=== PATIENT | female | born 1985 | race Caucasian/White ===

== ENCOUNTER → 2021-10-14 00:01 | Outpatient (BNVA) | payer SELFPAY | PROVIDERS: PCP Nurse Practitioner Family; Visit Provider Nurse Practitioner Family | DX: R00.0 Tachycardia, unspecified (principal); R00.2 Palpitations; R03.0 Elevated blood-pressure reading, without diagnosis of hypertension; Z13.6 Encounter for screening for cardiovascular disorders | CPT/HCPCS: 80053; 80061; 81003; 84439; 84443; 85025 ==

== ENCOUNTER → 2021-10-22 11:35 | Outpatient (BNVA) | payer SELFPAY | PROVIDERS: PCP Nurse Practitioner Family; Visit Provider Family Medicine | DX: Z13.6 Encounter for screening for cardiovascular disorders (principal) | CPT/HCPCS: 81003 ==

== ENCOUNTER → 2022-01-09 09:28 | Outpatient (BNVA) | payer BC, SELFPAY | PROVIDERS: PCP Nurse Practitioner Family; Visit Provider Nurse Practitioner Family | DX: L02.214 Cutaneous abscess of groin (principal); L02.91 Cutaneous abscess, unspecified; T63.301A Toxic effect of unspecified spider venom, accidental (unintentional), initial encounter; M25.842 Other specified joint disorders, left hand | CPT/HCPCS: 73130 ==

== ENCOUNTER 2022-01-15 07:17 | Outpatient (CLI) | payer BC, SELFPAY ==
[2022-01-15 07:27] VITALS: BMI 52.2
--- NOTE | 2022-01-15 08:57 | ECG_ITS ---
[facility] Test Date: 2022-01-15 Pat Name: Robyn Weiner Department: Room: Gender: Female Assistant Operations Manager: Toshazoran Recion : 1985 Requested By: Peri Ballrad Order Number: [id number] Navarrete MD: Micheal Rosales M.D. Interpretive Statements NAME OF STUDY: TREADMILL STRESS TEST INDICATION: [Dyspnea, ] EXERCISE DATA: The patient was exercised by Jignesh protocol. Baseline heart rate was 93 beats per minute. Baseline blood pressure was 131/81 millimeters of mercury. Target heart rate was 154 beats per minute. Maximum heart rate achieved was 177, which was 114% of the target heart rate. Maximum blood pressure was 176/106 millimeters of mercury. Total exercise time was 6 minutes 10 seconds. Maximum METs achieved was 10.2, maximum VO2 was 35.7. The reason for ending the test was completion of the protocol. The patient complained of shortness of breath during the stress test, which then resolved at the end of the test. ELECTROCARDIOGRAM: BASELINE: Showed sinus rhythm, right axis deviation, incomplete RBBB, no significant ST-T changes at the baseline noted. [] EXERCISE: At the peak exercise level, [] No significant ST-T changes suggestive of ischemia noted. [] RECOVERY: During the recovery period, heart rate dropped appropriately. No significant ST-T changes in the recovery suggestive of ischemia noted. [] CONCLUSION: 1. Exercise capacity excellent. 2. Heart rate response was appropriate. 3. Blood pressure response was appropriate. 4. Symptoms not suggestive of ischemia. 5. Exercise stress test was negative for ischemia Electronically Signed On 01-22-2022 17:10:33 [employer] CRM DEVELOPER by Micheal Rosales M.D. [id number]
[2022-01-15 09:23] VITALS: BP 127/92; PULSE 114
--- NOTE | 2022-01-15 12:45 | USCV_ITS ---
Robyn Weiner Age: 36 Gender: F : 1985 Exam Date: 01/15/2022 07:42 Ordering Phys: Peri Ballard MD ([email or web address]) Technologist: Exam Location: [facility] – [place] Indication: abnormal ekg BP: 130 / 86 HR: 90 Rhythm: Sinus Technical Quality: Adequate MEASUREMENTS (Male / Female) Normal Values 2D ECHO LV Diastolic Diameter PLAX 5.2 cm 4.2 - 5.9 / 3.9 - 5.3 cm LV Systolic Diameter PLAX 3.8 cm IVS Diastolic Thickness 1.0 cm 0.6 - 1.0 / 0.6 - 0.9 cm IVS Systolic Thickness 1.3 cm LVPW Diastolic Thickness 1.4 cm 0.6 - 1.0 / 0.6 - 0.9 cm LVPW Systolic Thickness 1.7 cm LVOT Diameter 2.1 cm LV Ejection Fraction 2D Teich 52.8 % LV Ejection Fraction MOD 2C 61.0 % LV Ejection Fraction 2C AL 61.8 % LA Diameter 3.3 cm Aorta at Sinotubular Diameter 2.7 cm M-MODE Aortic Annulus Diameter 2.4 cm LA Ao Ratio MM 1.5 MV E Point Septal Separation 0.5 cm DOPPLER AV Peak Velocity 132.0 cm/s LVOT Peak Velocity 106.0 cm/s AV Area Cont Eq vti 2.4 cm squared AV Area Cont Eq pk 2.8 cm squared MV Area PHT 3.7 cm squared Mitral E to A Ratio 1.2 MV E' Velocity 39.5 cm/s Mitral E to MV E' Ratio 6.3 Mitral E to LV E' Lateral Ratio 5.6 Mitral E to LV E' Septal Ratio 7.1 TR Peak Velocity 119.0 cm/s TR Peak Gradient 5.7 mmHg TV Peak E Velocity 79.0 cm/s Right Atrial Pressure 3.0 mmHg Pulmonary Artery Systolic Pressu 8.7 mmHg PV Peak Velocity 131.0 cm/s RV Acceleration Time 0.1 s FINDINGS Left Ventricle Normal left ventricular size. LV systolic function is normal with EF of 55-60%. and wall thickness, with no regional wall motion abnormalities. Normal left ventricular wall thickness. Normal diastolic filling pattern. Right Ventricle The right ventricle is normal in size and function. Right Atrium The right atrium is normal in size. Left Atrium The left atrium is normal in size. Mitral Valve Structurally normal mitral valve without significant stenosis or prolapse. There is trace mitral regurgitation. Aortic Valve Structurally normal aortic valve without significant sclerosis or stenosis. There is no aortic regurgitation. Tricuspid Valve Structurally normal tricuspid valve without significant stenosis or regurgitation. Insufficient TR jet to calculate RVSP Pulmonic Valve Structurally normal pulmonic valve without significant stenosis. There is no pulmonic regurgitation. Pericardium Normal pericardium without effusion. Aorta Normal ascending aorta dimension. CONCLUSIONS LV systolic function is normal with EF of 55-60% Diastolic function is normal Trace mitral regurgitation No comparison studies are available Micheal Rosales MD (Electronically Signed) Final Date: 21 January 2022 10:51 S
== END 2022-01-15 07:18 | disposition home or self-care (01) ==
LOC: RAD 07:19 → CDL 07:22
PROVIDERS: PCP Nurse Practitioner Family; Visit Provider Internal Medicine Cardiovascular Disease
DX: R06.00 Dyspnea, unspecified (principal); R94.31 Abnormal electrocardiogram [ECG] [EKG]; I34.0 Nonrheumatic mitral (valve) insufficiency
CPT/HCPCS: 93017; 93306

== ENCOUNTER → 2022-02-05 11:48 | Outpatient (BNVA) | payer BC, SELFPAY | PROVIDERS: PCP Nurse Practitioner Family; Visit Provider Nurse Practitioner Family | DX: N39.0 Urinary tract infection, site not specified (principal); Z79.899 Other long term (current) drug therapy; R35.0 Frequency of micturition | CPT/HCPCS: 80053; 81003; 83036; 87086 ==

== ENCOUNTER → 2022-02-24 17:00 | Outpatient (BNVA) | payer SELFPAY | PROVIDERS: PCP Nurse Practitioner Family; Visit Provider Nurse Practitioner Family | DX: N76.4 Abscess of vulva (principal); E55.9 Vitamin D deficiency, unspecified | CPT/HCPCS: 36415; 82306 ==

== ENCOUNTER → 2022-02-25 10:00 | Outpatient (BNVA) | payer SELFPAY | PROVIDERS: PCP Nurse Practitioner Family; Visit Provider Nurse Practitioner Family | DX: N76.4 Abscess of vulva (principal) | CPT/HCPCS: 87070; 87075; 87205 ==

== ENCOUNTER 2022-03-01 11:03 | Outpatient (CLI) | payer BC, MEDICAID, SELFPAY ==
--- NOTE | 2022-03-01 11:29 | XRR_ITS ---
PROCEDURE INFORMATION: Exam: XR Thoracic Spine Exam date and time: 03/01/2022 11:29 AM Age: 36 years old Clinical indication: Pain in thoracic spine; Additional info: M54.6 - pain in thoracic spine, provide copy of disc TECHNIQUE: Imaging protocol: XR of the thoracic spine. Views: 3 views. COMPARISON: No relevant prior studies available. FINDINGS: Bones/joints: Multilevel intervertebral disc space narrowing is seen with bone spurs consistent with osteoarthritis. No acute fracture. Normal alignment. Soft tissues: Unremarkable. XR/XR thoracic spine 3V* [id number] IMPRESSION: No acute bone abnormality.
--- NOTE | 2022-03-01 11:29 | XRR_ITS ---
PROCEDURE INFORMATION: Exam: XR Abdomen Exam date and time: 03/01/2022 11:29 AM Age: 36 years old Clinical indication: Abdominal pain; Additional info: R10.9 - unspecified abdominal pain TECHNIQUE: Imaging protocol: XR of the abdomen. Views: Frontal supine view of the abdomen. 1 View. COMPARISON: No relevant prior studies available. FINDINGS: Gastrointestinal tract: Normal. No bowel dilation. Bones/joints: Unremarkable. XR/XR KUB [id number] IMPRESSION: No acute findings.
== END 2022-03-01 11:04 | disposition home or self-care (01) ==
PROVIDERS: PCP Nurse Practitioner Family; Visit Provider Nurse Practitioner Family
DX: R10.9 Unspecified abdominal pain (principal); M54.6 Pain in thoracic spine; G89.29 Other chronic pain
CPT/HCPCS: 72072; 74018

== ENCOUNTER 2022-03-03 15:58 | Emergency (ER) | payer BC, MEDICAID, SELFPAY ==
[2022-03-03 16:20] VITALS: BP 155/91; PULSE 84; RESP 18; TEMP 36.8; O2SAT 99; BMI 50.7
--- NOTE | 2022-03-03 16:53 | W.ED.ABDPA2 ---
Documented by User: THOMAS Khan 03/04/22 07:06 HPI - Abdominal Pain General: Chief Complaint: Abdominal Pain Stated Complaint: Lower RT Back area pain Time Seen by Provider: 03/03/22 16:46 History of Present Illness: Patient is a 36-year-old female comes to the ED with right flank pain. Symptoms started approximately a month ago. Says the pain in her right flank has continued to progress. Over the weekend she was really sick and nauseous and had episodes of emesis due to the pain. Pain worsens with movement. She currently rates her pain a 5 out of 10. She does endorse having some increased urine frequency. Denies any fevers, dysuria or hematuria. She saw her primary care doctor approximately a week ago and they did some blood work and an x-ray and did not see any kidney stone on x-ray. Primary care doctor was thinking she would send her for a ultrasound or CT of kidneys. Since patient's symptoms are worse over the weekend she decided to come in to be evaluated. She just finished taking doxycycline due to vaginal cyst that got infected. Associated Symptoms: Reports nausea and vomiting; Denies chills, constipation, diarrhea, dysuria, fever(s), hematochezia and hematuria Related Data: Date of Last Menstrual Period: 01/15/22 Review of Systems Const: Denies: fever(s), chills or fatigue Eyes: Denies: change in vision or eye discomfort ENMT: Denies: throat pain, odynophagia, nasal discharge or nasal congestion Card: Denies: chest pain, palpitations, edema, swelling of feet/ankles, dyspnea on exertion or orthopnea Resp: Denies: dyspnea, productive cough or non-productive cough GI: Reports: nausea and vomiting; Denies: abdominal pain, diarrhea, constipation or hematochezia : Reports: flank pain (right flank) and urinary frequency (Increased urine frequency); Denies: dysuria or hematuria Musc: Denies: neck pain, back pain or extremity swelling Skin/Breast: Denies: rash or new lesions Neuro: Denies: headache(s), numbness in extremities or weakness in extremities [facility] ED PFSH: Medical History Abscess of left genital labia Abscess of left groin COVID-19 virus infection Cyst of joint of left hand Elevated blood pressure reading without diagnosis of hypertension Fatigue Flank pain H/O eczema Hypertension screen Low back pain Medication management Medication management Palpitations Shoulder fracture, left Spider bite Thoracic back pain Urinary frequency Family History Grandmother Bleeding disorder Cancer Dementia Grandfather Bleeding disorder CAD (coronary artery disease), Onset Age: 55 MA Diabetes Family/Other Bleeding disorder Chronic kidney disease (CKD) Dementia Diabetes Lung disease Denies family history of Clotting disorder Suicide Anesthesia complication Stroke Social History Smoking and tobacco status: never smoked Alcohol intake: never Female Reproductive History: Date of last menstrual period: 01/15/22 Physical Exam Const: COMMON NORMALS: no acute distress, patient oriented x3, healthy appearing and alert GENERAL APPEARANCE: cooperative and comfortable NUTRITIONAL APPEARANCE: obese HENMT: COMMON NORMALS: normocephalic HEAD & SCALP: normocephalic MOUTH: Normal oral and palatal mucosa present THROAT: posterior oropharynx normal and uvula midline Neck/C-Spine: COMMON NORMALS: supple GENERAL: Yes normal visual inspection Resp: COMMON NORMALS: normal respiratory effort, No retractions, No use of accessory muscles and clear to auscultation bilaterally AUSCULTATION: clear to auscultation bilaterally Cardio: COMMON NORMALS: regular rate, regular rhythm, S1 normal heart sound present, S2 normal heart sound present, No gallops present (Cardio), No clicks present (Cardio), No murmurs present (Cardio) and Peripheral pulses 2+ throughout RATE: regular rate RHYTHM: regular rhythm HEART SOUNDS: S1 normal heart sound present and S2 normal heart sound present PERIPHERAL PULSES: Peripheral pulses 2+ throughout GI: COMMON NORMALS: Normal to inspection, nondistended, normoactive bowel sounds present, Soft to palpation, non-tender and no masses PALPATION: Yes Soft to palpation : BLADDER/KIDNEY EXAM: Yes CVA tenderness on the right Back/Pelvis: GENERAL BACK: Yes CVA tenderness Extremity: COMMON NORMALS: normal to inspection and no pedal edema Neuro: COMMON NORMALS: patient oriented x3 SENSORIUM/ORIENTATION: Yes alert GAIT: Yes Normal gait present Skin: GENERAL SKIN EXAM: dry skin Course Vital Signs: Vital signs: Vital Signs Temperature 98.9 F 03/03/22 16:59 Pulse Rate 88 03/03/22 19:30 Respiratory Rate 20 H 03/03/22 19:30 Blood Pressure 129/68 03/03/22 19:30 Pulse Oximetry 98 03/03/22 19:30 MDM - Abdominal Pain Lab Data I reviewed the patient's lab results. : 03/03/22 17:00 03/03/22 17:00 Labs/Radiology: Radiology Impressions Abdomen/Pelvis CT 03/03/22 16:59 IMPRESSION: 1. Mild hepatosplenomegaly. 2. Trace dependent pleural fluid. 3. Additional findings, as above. Laboratory Results WBC 8.5 10^3/uL (4.0-10.0) 03/03/22 17:00 RBC 4.46 10^6/uL (4.1-5.3) 03/03/22 17:00 Hgb 13.1 g/dL (11.5-15.3) 03/03/22 17:00 Hct 40.8 % (37.0-47.0) 03/03/22 17:00 MCV 91.5 fl (81-99) 03/03/22 17:00 MCH 29.4 pg (28.0-34.0) 03/03/22 17:00 MCHC 32.1 g/dL (30.0-36.0) 03/03/22 17:00 RDW 13.1 % (12.1-15.1) 03/03/22 17:00 Plt Count 316 10^3/cmm (130-400) 03/03/22 17:00 MPV 9.8 fL (7.4-10.4) 03/03/22 17:00 Neut % (Auto) 62.8 % 03/03/22 17:00 Lymph % (Auto) 26.1 % 03/03/22 17:00 [place] % (Auto) 6.0 % 03/03/22 17:00 Eos % (Auto) 4.4 % 03/03/22 17:00 Baso % (Auto) 0.5 % 03/03/22 17:00 Neut # (Auto) 5.33 10^3/uL (1.8-7.7) 03/03/22 17:00 Lymph # (Auto) 2.2 10^3/uL (0.8-4.8) 03/03/22 17:00 [place] # (Auto) 0.5 10^3/uL (0.2-0.9) 03/03/22 17:00 Eos # (Auto) 0.4 10^3/uL (0.0-0.8) 03/03/22 17:00 Baso # (Auto) 0.0 10^3/uL (0.0-0.1) 03/03/22 17:00 Nucleated RBC % (auto) 0 % 03/03/22 17:00 Nucleated RBCs # 0.0 /100WBC 03/03/22 17:00 Sodium 138 mmol/L (136-145) 03/03/22 17:00 Potassium 3.9 mmol/L (3.5-5.1) 03/03/22 17:00 Chloride 101 mmol/L (98-107) 03/03/22 17:00 Carbon Dioxide 26 mmol/L (22-29) 03/03/22 17:00 Anion Gap 14.9 (5-19) 03/03/22 17:00 BUN 10 mg/dL (6-20) 03/03/22 17:00 Creatinine 0.8 mg/dL (0.5-0.9) 03/03/22 17:00 GFR Calculation 80.3 mL/min (90-130) L 03/03/22 17:00 Glucose 81 mg/dL (65-115) 03/03/22 17:00 Calculated Osmolality 284 mOsm/kg (285-295) L 03/03/22 17:00 Calcium 10.0 mg/dL (8.5-10.5) 03/03/22 17:00 Total Bilirubin 0.2 mg/dL (0.15-1.2) 03/03/22 17:00 AST 17 U/L (0-32) 03/03/22 17:00 ALT 20 U/L (0-33) 03/03/22 17:00 Alkaline Phosphatase 95 IU/L (35-105) 03/03/22 17:00 Total Protein 7.4 g/dL (6.6-8.7) 03/03/22 17:00 Albumin 4.4 g/dL (3.5-5.2) 03/03/22 17:00 Globulin 3.0 g/dL (1.3-4.6) 03/03/22 17:00 Lipase 25 U/L (13-60) 03/03/22 17:00 HCG, Qual Negative (Negative) 03/03/22 17:00 Urine Color Yellow (Yellow) 03/03/22 17:00 Urine Appearance Cloudy (CLEAR) 03/03/22 17:00 Urine pH 5 (5-7) 03/03/22 17:00 Ur Specific [place] 1.015 (1.005-1.030) 03/03/22 17:00 Urine Protein Neg (Negative) 03/03/22 17:00 Urine Glucose (UA) Norm (Normal) 03/03/22 17:00 Urine Ketones Negative (Negative) 03/03/22 17:00 Urine Blood 3+ (Negative) H 03/03/22 17:00 Urine Nitrate Negative (Negative) 03/03/22 17:00 Urine Bilirubin Neg (Negative) 03/03/22 17:00 Urine Urobilinogen Norm mg/dL (Negative) 03/03/22 17:00 Ur Leukocyte Esterase Negative (Negative) 03/03/22 17:00 Urine RBC 0-4 /hpf (0-2) H 03/03/22 17:00 Urine WBC 0-4 /hpf (0-5) H 03/03/22 17:00 Ur Squamous Epith Cells 0-4 /hpf (0-5) H 03/03/22 17:00 Amorphous Sediment Not Reportable 03/03/22 17:00 Urine Bacteria 1+ /hpf (NONE) H 03/03/22 17:00 Urine Mucus 1+ /hpf 03/03/22 17:00 Discharge Plan Discharge Patient Disposition: Home Clinical Impression: Right flank pain Condition: Stable Prescriptions: No Action doxycycline monohydrate 100 mg capsule 100 mg PO BID 10 Days Qty: 20 0RF zinc 50 mg Tablet 50 mg PO DAILY 0RF Vitamin D3 125 mcg (5,000 unit) Tablet 125 mcg PO DAILY 0RF Discharge Orders: Discharge ED (Routine); Ordered 03/03/22 Ordered By: Boogie Massey Referrals: DINO Willoughby, TOÑA [Primary Care Provider] - Discharge Diet: Usual diet Discharge Activity: Increase activity as tolerated Patient Instructions: Back Pain (ED), Lower Back Exercises (ED) Activity Restrictions/Additional Instructions: Activity as tolerated. Gentle stretching and range of motion exercises. Use acetaminophen and ibuprofen for pain. Follow-up with primary care for further instruction. Return to ER for new concerns. Sign Out Sign Out Data: Patient Sign Out occurred on 03/03/22 at 17:15. Patient's care was discussed, and care was transferred from to Boogie Massey. Coding Level of Care Code ED Porcelain Enameler for Chg Fwd Exam Comprehensive Documented by User: TOÑA Hollins 03/03/22 19:28 HPI - Abdominal Pain General: Chief Complaint: Abdominal Pain Stated Complaint: Lower RT Back area pain Time Seen by Provider: 03/03/22 16:46 PFSH ED PFSH: Medical History Abscess of left genital labia Abscess of left groin COVID-19 virus infection Cyst of joint of left hand Elevated blood pressure reading without diagnosis of hypertension Fatigue Flank pain H/O eczema Hypertension screen Low back pain Medication management Medication management Palpitations Shoulder fracture, left Spider bite Thoracic back pain Urinary frequency Family History Grandmother Bleeding disorder Cancer Dementia Grandfather Bleeding disorder CAD (coronary artery disease), Onset Age: 55 MA Diabetes Family/Other Bleeding disorder Chronic kidney disease (CKD) Dementia Diabetes Lung disease Denies family history of Clotting disorder Suicide Anesthesia complication Stroke Social History Smoking and tobacco status: never smoked Alcohol intake: never Course Vital Signs: Vital signs: Vital Signs Temperature 98.9 F 03/03/22 16:59 Pulse Rate 88 03/03/22 19:30 Respiratory Rate 20 H 03/03/22 19:30 Blood Pressure 129/68 03/03/22 19:30 Pulse Oximetry 98 03/03/22 19:30 MDM - Abdominal Pain Medical Decision Making 36-year-old female comes in with right flank pain. Patient's been having pain for about 1 month. Patient reports worsening pain over the weekend. Patient has tried chiropractic services and has been being treated for urinary tract infection and abscess to the axilla and groin. Patient takes doxycycline and vitamin D3 and zinc routinely. Patient had COVID-19 about 1 year ago. Patient does have an occasional arrhythmia. On exam patient has tenderness on palpation of the right flank area. No CVA tenderness. No midline spinal tenderness. Abdomen soft nontender. Bowel sounds are present. Skin is warm and dry. Differential diagnosis includes but not limited to musculoskeletal pain, renal calculi, cholecystitis. Laboratory values were normal. Urinalysis was unremarkable. CT of the abdomen pelvis noted some atelectasis in bilateral lung panda with trace of pleural effusion. Abdominal pelvis was unremarkable. Believe the atelectasis and fluid on the lung is probably residual from patient's bout of COVID-19 with pneumonia. Patient appears well. I believe patient has tenderness and probably is musculoskeletal in nature pain. I reassured patient no signs of kidney stones or other abnormality was noted. I recommended patient follow-up with primary care for further instruction. Lab Data : 03/03/22 17:00 03/03/22 17:00 Labs/Radiology: Radiology Impressions Abdomen/Pelvis CT 03/03/22 16:59 IMPRESSION: 1. Mild hepatosplenomegaly. 2. Trace dependent pleural fluid. 3. Additional findings, as above. Laboratory Results WBC 8.5 10^3/uL (4.0-10.0) 03/03/22 17:00 RBC 4.46 10^6/uL (4.1-5.3) 03/03/22 17:00 Hgb 13.1 g/dL (11.5-15.3) 03/03/22 17:00 Hct 40.8 % (37.0-47.0) 03/03/22 17:00 MCV 91.5 fl (81-99) 03/03/22 17:00 MCH 29.4 pg (28.0-34.0) 03/03/22 17:00 MCHC 32.1 g/dL (30.0-36.0) 03/03/22 17:00 RDW 13.1 % (12.1-15.1) 03/03/22 17:00 Plt Count 316 10^3/cmm (130-400) 03/03/22 17:00 MPV 9.8 fL (7.4-10.4) 03/03/22 17:00 Neut % (Auto) 62.8 % 03/03/22 17:00 Lymph % (Auto) 26.1 % 03/03/22 17:00 [place] % (Auto) 6.0 % 03/03/22 17:00 Eos % (Auto) 4.4 % 03/03/22 17:00 Baso % (Auto) 0.5 % 03/03/22 17:00 Neut # (Auto) 5.33 10^3/uL (1.8-7.7) 03/03/22 17:00 Lymph # (Auto) 2.2 10^3/uL (0.8-4.8) 03/03/22 17:00 [place] # (Auto) 0.5 10^3/uL (0.2-0.9) 03/03/22 17:00 Eos # (Auto) 0.4 10^3/uL (0.0-0.8) 03/03/22 17:00 Baso # (Auto) 0.0 10^3/uL (0.0-0.1) 03/03/22 17:00 Nucleated RBC % (auto) 0 % 03/03/22 17:00 Nucleated RBCs # 0.0 /100WBC 03/03/22 17:00 Sodium 138 mmol/L (136-145) 03/03/22 17:00 Potassium 3.9 mmol/L (3.5-5.1) 03/03/22 17:00 Chloride 101 mmol/L (98-107) 03/03/22 17:00 Carbon Dioxide 26 mmol/L (22-29) 03/03/22 17:00 Anion Gap 14.9 (5-19) 03/03/22 17:00 BUN 10 mg/dL (6-20) 03/03/22 17:00 Creatinine 0.8 mg/dL (0.5-0.9) 03/03/22 17:00 GFR Calculation 80.3 mL/min (90-130) L 03/03/22 17:00 Glucose 81 mg/dL (65-115) 03/03/22 17:00 Calculated Osmolality 284 mOsm/kg (285-295) L 03/03/22 17:00 Calcium 10.0 mg/dL (8.5-10.5) 03/03/22 17:00 Total Bilirubin 0.2 mg/dL (0.15-1.2) 03/03/22 17:00 AST 17 U/L (0-32) 03/03/22 17:00 ALT 20 U/L (0-33) 03/03/22 17:00 Alkaline Phosphatase 95 IU/L (35-105) 03/03/22 17:00 Total Protein 7.4 g/dL (6.6-8.7) 03/03/22 17:00 Albumin 4.4 g/dL (3.5-5.2) 03/03/22 17:00 Globulin 3.0 g/dL (1.3-4.6) 03/03/22 17:00 Lipase 25 U/L (13-60) 03/03/22 17:00 HCG, Qual Negative (Negative) 03/03/22 17:00 Urine Color Yellow (Yellow) 03/03/22 17:00 Urine Appearance Cloudy (CLEAR) 03/03/22 17:00 Urine pH 5 (5-7) 03/03/22 17:00 Ur Specific [place] 1.015 (1.005-1.030) 03/03/22 17:00 Urine Protein Neg (Negative) 03/03/22 17:00 Urine Glucose (UA) Norm (Normal) 03/03/22 17:00 Urine Ketones Negative (Negative) 03/03/22 17:00 Urine Blood 3+ (Negative) H 03/03/22 17:00 Urine Nitrate Negative (Negative) 03/03/22 17:00 Urine Bilirubin Neg (Negative) 03/03/22 17:00 Urine Urobilinogen Norm mg/dL (Negative) 03/03/22 17:00 Ur Leukocyte Esterase Negative (Negative) 03/03/22 17:00 Urine RBC 0-4 /hpf (0-2) H 03/03/22 17:00 Urine WBC 0-4 /hpf (0-5) H 03/03/22 17:00 Ur Squamous Epith Cells 0-4 /hpf (0-5) H 03/03/22 17:00 Amorphous Sediment Not Reportable 03/03/22 17:00 Urine Bacteria 1+ /hpf (NONE) H 03/03/22 17:00 Urine Mucus 1+ /hpf 03/03/22 17:00 Discharge Plan Discharge Patient Disposition: Home Clinical Impression: Right flank pain Condition: Stable Prescriptions: No Action doxycycline monohydrate 100 mg capsule 100 mg PO BID 10 Days Qty: 20 0RF zinc 50 mg Tablet 50 mg PO DAILY 0RF Vitamin D3 125 mcg (5,000 unit) Tablet 125 mcg PO DAILY 0RF Discharge Orders: Discharge ED (Routine); Ordered 03/03/22 Ordered By: Boogie Massey Referrals: DINO Willoughby, EQUIPMENT MAN [Primary Care Provider] - Discharge Diet: Usual diet Discharge Activity: Increase activity as tolerated Patient Instructions: Back Pain (ED), Lower Back Exercises (ED) Activity Restrictions/Additional Instructions: Activity as tolerated. Gentle stretching and range of motion exercises. Use acetaminophen and ibuprofen for pain. Follow-up with primary care for further instruction. Return to ER for new concerns. Sign Out Sign Out Data: Patient Sign Out occurred on 03/03/22 at 17:15. Patient's care was discussed, and care was transferred from to Boogie Massey. Coding Level of Care Code ED Porcelain Enameler for Carla Fwd Exam Comprehensive
[2022-03-03 16:59] VITALS: BP 143/94; PULSE 94; RESP 16; TEMP 37.2; O2SAT 96
--- NOTE | 2022-03-03 16:59 | CTR_ITS ---
PROCEDURE INFORMATION: Exam: CT Abdomen And Pelvis Without Contrast Exam date and time: 03/03/2022 5:55 PM Age: 36 years old Clinical indication: Abdominal pain; Flank; Right; Additional info: Right flank pain TECHNIQUE: Imaging protocol: Computed tomography of the abdomen and pelvis without contrast. Axial, coronal and sagittal reformatted images were created and reviewed. Radiation optimization: All CT scans at this facility use at least one of these dose optimization techniques: automated exposure control; mA and/or kV adjustment per patient size (includes targeted exams where dose is matched to clinical indication); or iterative reconstruction. COMPARISON: CR (ABDOMEN, ) 03/01/2022 11:29 AM RADIATION DOSE METRICS: Total DLP (mGy-cm): 2049.57 FINDINGS: Lungs: Linear/discoid stranding and groundglass at the lung bases, likely due to atelectasis and/or scarring. Pleural spaces: Trace dependent pleural fluid. Diaphragm: Small hiatal hernia. Liver: Mild hepatomegaly. Gallbladder and bile ducts: No radiodense gallstones. No biliary ductal dilatation. Pancreas: Unremarkable. Spleen: Mild splenomegaly. Adrenal glands: Normal. No mass. Kidneys and ureters: No mass. No radiodense calculi. No hydronephrosis. Stomach and bowel: No bowel wall thickening. No obstruction. No pneumatosis. Appendix: Normal. Intraperitoneal space: No free fluid. No organized fluid collection. No free air. Vasculature: Unremarkable. No aneurysm. Lymph nodes: No pathologically enlarged lymph nodes. Urinary bladder: Unremarkable as visualized. Reproductive: Unremarkable. Bones/joints: No acute osseous abnormality. Mild degenerative changes. Soft tissues: Small, fat containing umbilical hernia. CT/CT kidney stone [id number] IMPRESSION: 1. Mild hepatosplenomegaly. 2. Trace dependent pleural fluid. 3. Additional findings, as above.
[2022-03-03 17:10] LABS: Basophils % 0.5 %; Eosinophils # 0.4 10^3/uL (0.0-0.8); Eosinophils % 4.4 %; Hematocrit 40.8 % (37.0-47.0); Hemoglobin 13.1 g/dL (11.5-15.3); Lymphocytes # 2.2 10^3/uL (0.8-4.8); Lymphocytes % 26.1 %; Mean Corpuscular HGB Conc 32.1 g/dL (30.0-36.0); Mean Corpuscular Hemoglobin 29.4 pg (28.0-34.0); Mean Corpuscular Volume 91.5 fl (81-99); Mean Platelet Volume 9.8 fL (7.4-10.4); Monocytes # 0.5 10^3/uL (0.2-0.9); Neutrophils # 5.33 10^3/uL (1.8-7.7); Neutrophils % 62.8 %; Nucleated Red Blood Cells % 0 %; Platelet Count 316 10^3/cmm (130-400); Red Blood Count 4.46 10^6/uL (4.1-5.3); Red Cell Distribution Width 13.1 % (12.1-15.1); White Blood Count 8.5 10^3/uL (4.0-10.0)
[2022-03-03 17:29] LABS: HCG, Serum Qual Negative (Negative)
[2022-03-03 17:34] LABS: Alanine Aminotransferase 20 U/L (0-33); Albumin Level 4.4 g/dL (3.5-5.2); Alkaline Phosphatase 95 IU/L (35-105); Anion Gap 14.9 (5-19); Aspartate Amino Transferase 17 U/L (0-32); Blood Urea Nitrogen 10 mg/dL (6-20); Carbon Dioxide 26 mmol/L (22-29); Chloride 101 mmol/L (98-107); Glomerular Filtration Rate 80.3 mL/min (90-130); Glucose 81 mg/dL (65-115); Lipase 25 U/L (13-60); Osmolality Calculated 284 mOsm/kg (285-295); Potassium 3.9 mmol/L (3.5-5.1); Sodium 138 mmol/L (136-145); Total Bilirubin 0.2 mg/dL (0.15-1.2); Total Protein 7.4 g/dL (6.6-8.7)
[2022-03-03 17:44] LABS: Add Urine Microscopic? YES; Bilirubin Urine Neg (Negative); Blood Urine 3+ (Negative); Glucose Urine UA Norm (Normal); Ketones Urine Negative (Negative); Leukocyte Esterase Urine Negative (Negative); Nitrate Urine Negative (Negative); Protein Urine Neg (Negative); Specific Gravity, Urine 1.015 (1.005-1.030); Urine Appearance Cloudy (CLEAR); Urine Color Yellow (Yellow); Urobilinogen Urine Norm (Negative); pH Urine 5 (5-7)
[2022-03-03 17:45] LABS: Bacteria Urine 1+ /hpf; Mucus Urine 1+ /hpf; RBC Urine 0-4 /hpf (0-2); Squamous Epithelial Cell Urine 0-4 /hpf (0-5); WBC Urine 0-4 /hpf (0-5)
[2022-03-03 18:49] VITALS: BP 114/73; PULSE 88; RESP 18; O2SAT 96
[2022-03-03 19:30] VITALS: BP 129/68; PULSE 88; RESP 20; O2SAT 98
== END 2022-03-03 19:32 | disposition home or self-care (01) ==
PROVIDERS: Physician Assistant; Emergency Provider Nurse Practitioner Family; PCP Nurse Practitioner Family
DX: M54.9 Dorsalgia, unspecified (principal)
CPT/HCPCS: 74176; 80053; 81001; 83690; 84703; 85025; 99282

== ENCOUNTER 2022-11-14 13:08 | Outpatient (CLI) | payer BC, MEDICAID, SELFPAY ==
--- NOTE | 2022-11-14 14:00 | USCV_ITS ---
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 In addition, the posterior tibial and peroneal trunk were evaluated. On the right side, the common femoral, superficial femoral, profunda femoral, popliteal, posterior tibial, greater saphenous veins and the peroneal trunk were identified and interrogated in the standard fashion. These veins were found to be easily compressible with spontaneous blood flow. No evidence of insufficiency or thrombus noted. FINDINGS: normal us CONCLUSIONS No evidence of right lower extremity DVT. Alistair Cullen MD (Electronically Signed) Final Date: 14 November 2022 17:25 S
== END 2022-11-14 13:09 | disposition home or self-care (01) ==
LOC: RAD 13:09
PROVIDERS: PCP Nurse Practitioner; Visit Provider Nurse Practitioner
DX: M79.604 Pain in right leg (principal)
CPT/HCPCS: 93971

== ENCOUNTER → 2023-10-02 09:36 | Outpatient (BNVA) | payer BC, MEDICAID, SELFPAY | PROVIDERS: PCP Nurse Practitioner; Visit Provider Nurse Practitioner Family | DX: E55.9 Vitamin D deficiency, unspecified (principal); Z13.6 Encounter for screening for cardiovascular disorders; M25.50 Pain in unspecified joint; R35.0 Frequency of micturition; Z79.899 Other long term (current) drug therapy; J34.2 Deviated nasal septum; R53.83 Other fatigue; R03.0 Elevated blood-pressure reading, without diagnosis of hypertension | CPT/HCPCS: 80053; 80061; 81003; 82306; 83036; 84443; 85025; 86038; 86200; 86431; 87070; 87806 ==

== ENCOUNTER → 2023-11-02 13:54 | Outpatient (BNVA) | payer BC, MEDICAID, SELFPAY | PROVIDERS: PCP Nurse Practitioner; Visit Provider Nurse Practitioner Family | DX: M25.50 Pain in unspecified joint (principal); R35.0 Frequency of micturition; J02.9 Acute pharyngitis, unspecified; R31.9 Hematuria, unspecified; E55.9 Vitamin D deficiency, unspecified; Z79.899 Other long term (current) drug therapy | CPT/HCPCS: 81003; 82728; 83550; 83735; 85025; 85651; 86140; 87086 ==

== ENCOUNTER → 2023-11-03 11:58 | Outpatient (BNVA) | payer BC, MEDICAID, SELFPAY | PROVIDERS: PCP Nurse Practitioner; Visit Provider Nurse Practitioner Family | DX: M25.50 Pain in unspecified joint (principal); R35.0 Frequency of micturition; J02.9 Acute pharyngitis, unspecified; R31.9 Hematuria, unspecified; E55.9 Vitamin D deficiency, unspecified | CPT/HCPCS: 87880 ==

== ENCOUNTER 2024-03-02 12:08 | Outpatient (CLI) | payer BC, MEDICAID, SELFPAY ==
--- NOTE | 2024-03-02 12:17 | XR_ITS ---
WS: [id number] Examination: XR cervical spine fl/ex [id number] Reason for Exam: M50.30 - Other cervical disc degeneration, unspecified ce... Date: March 02, 2024 Comparison: None. Findings: The ALEJANDRINA is intact. There is no prevertebral swelling. There is no wedging or compression. There is no neutral subluxation. Alignment is stable across flexi on and extension. Impression: There is no compression or subluxation.
== END 2024-03-02 12:09 | disposition home or self-care (01) ==
LOC: RAD 12:10
PROVIDERS: PCP Nurse Practitioner Family; Visit Provider Nurse Practitioner Family
DX: M50.30 Other cervical disc degeneration, unspecified cervical region (principal)
CPT/HCPCS: 72040

== ENCOUNTER 2024-08-16 06:00 | Outpatient (CLI) | payer BC, MEDICAID, SELFPAY | END 2024-08-16 06:01 | disposition home or self-care (01) | LOC: MOBLMAM 09-02 11:32 | PROVIDERS: PCP Nurse Practitioner Family; Visit Provider Nurse Practitioner Family | DX: Z13.6 Encounter for screening for cardiovascular disorders (principal); E55.9 Vitamin D deficiency, unspecified; R53.83 Other fatigue; D64.9 Anemia, unspecified; Z79.899 Other long term (current) drug therapy; Z12.4 Encounter for screening for malignant neoplasm of cervix | CPT/HCPCS: 80053; 82306; 82728; 83550; 85025; 85651; 86140; 87070; 87205; 87624 ==

== ENCOUNTER 2024-08-17 12:43 | Outpatient (CLI) | payer BC, MEDICAID, SELFPAY ==
--- NOTE | 2024-08-17 12:51 | XRR_ITS ---
PROCEDURE INFORMATION: Exam: XR Lumbosacral Spine Exam date and time: 08/17/2024 12:59 PM Age: 39 years old Clinical indication: Low back pain; Patient HX: Pain in lower back radiating down the back of the legs. ; Additional info: M54.16 - radiculopathy, lumbar region TECHNIQUE: Imaging protocol: Radiologic exam of the lumbosacral spine. Views: 6 or more views. Including flexion and extension views. COMPARISON: CT kidney stone [id number] 03/03/2022 5:55 PM FINDINGS: Bones/joints: Normal. No acute fracture. Normal alignment. Soft tissues: Unremarkable. XR/XR lumbar spine 6V w f/e [id number] IMPRESSION: No acute findings.
== END 2024-08-17 12:44 | disposition home or self-care (01) ==
LOC: RAD 12:47
PROVIDERS: PCP Nurse Practitioner Family; Visit Provider Nurse Practitioner Family
DX: M54.16 Radiculopathy, lumbar region (principal)
CPT/HCPCS: 72114

== ENCOUNTER 2024-08-31 17:11 | Outpatient (CLI) | payer BC, MEDICAID, SELFPAY ==
--- NOTE | 2024-08-31 17:25 | XR_ITS ---
WS: [id number] Exam: XR ankle LT min 3V* [id number] Date/Time of Exam: 08/31/2024 5:25 PM Reason For Exam: S96.912A - Strain of unspecified muscle and tendon at ank... Findings: Multiple views of the ankle reveal no fracture or displacements of bone. No soft tissue swelling is present. There are no periosteal reactions noted. The talus and calcaneus are in adequate position. The joint space is smooth and equidistant. XR/XR ankle LT min 3V* [id number] IMPRESSION: Negative LEFT ankle.
== END 2024-08-31 17:12 | disposition home or self-care (01) ==
LOC: RAD 17:15
PROVIDERS: PCP Nurse Practitioner Family; Visit Provider Nurse Practitioner Family
DX: S96.912A Strain of unspecified muscle and tendon at ankle and foot level, left foot, initial encounter (principal); X58.XXXA Exposure to other specified factors, initial encounter
CPT/HCPCS: 73610

== ENCOUNTER 2024-09-20 10:48 | Outpatient (CLI) | payer BC, MEDICAID, SELFPAY ==
--- NOTE | 2024-09-20 10:40 | MM_ITS ---
WS: [id number] BILATERAL 3D TOMOSYNTHESIS DIGITAL SCREENING MAMMOGRAPHY WITH CAD CLINICAL INFORMATION: Z12.31 - Encounter for screening mammogram for malignant ... HISTORY: Screening mammogram. No current complaints. COMPARISON: 2013 TECHNIQUE: Bilateral CC and MLO views. FINDINGS: Scattered fibroglandular densities bilaterally. No suspicious focal mass, asymmetry, calcifications, or architectural distortion. No evidence of malignancy. A few incidental punctate calcifications. MM/MM [facility] tomosynthesis [id number] IMPRESSION: DENSITY: There are scattered areas of fibroglandular density. BI-RADS: 2 - Benign. FOLLOW UP: 1 Year Follow-up Recommend return to annual screening mammography.
== END 2024-09-20 10:49 | disposition home or self-care (01) ==
LOC: MOBLMAM 10:51
PROVIDERS: PCP Nurse Practitioner Family; Visit Provider Nurse Practitioner Family
DX: Z12.31 Encounter for screening mammogram for malignant neoplasm of breast (principal); R92.323 Mammographic fibroglandular density, bilateral breasts; R92.1 Mammographic calcification found on diagnostic imaging of breast
CPT/HCPCS: 77063; 77067

== ENCOUNTER 2025-02-05 17:55 | Emergency (ER) | payer BC, MEDICAID, SELFPAY ==
[2025-02-05 17:59] VITALS: BP 156/82; PULSE 94; RESP 17; TEMP 36.7; O2SAT 98; BMI 50.1
--- NOTE | 2025-02-05 18:07 | CTR_ITS ---
PROCEDURE INFORMATION: Exam: CT Head Without Contrast Exam date and time: 02/05/2025 5:18 PM Age: 39 years old Clinical indication: Pain; Weakness, extremity; Headache; C/O HOLLOWAY with bilateral upper extremity numbness. ; Additional info: Headache bilateral arm numbness TECHNIQUE: Imaging protocol: Computed tomography of the head without contrast. Radiation optimization: All CT scans at this facility use at least one of these dose optimization techniques: automated exposure control; mA and/or kV adjustment per patient size (includes targeted exams where dose is matched to clinical indication); or iterative reconstruction. COMPARISON: CR XR cervical spine fl/ex [id number] 03/02/2024 12:28 PM RADIATION DOSE METRICS: Total DLP (mGy-cm): 1102.99 FINDINGS: Brain: Parenchymal structures of the brain demonstrate normal anatomy and attenuation. The patient is asymmetrically positioned within the gantry. Beam hardening artifact somewhat obscures resolution through the lower sections at the skull base and posterior fossa. The midline is intact. No hemorrhage. Unremarkable white matter. No mass effect. Cerebral ventricles: Ventricles demonstrate normal size shape and configuration and are in proportion to the degree of widening of the sulci, sylvian fissures and basilar cisterns. Paranasal sinuses: Visualized sinuses are unremarkable. No fluid levels. Mastoid air cells: Visualized mastoid air cells are well aerated. Orbital cavities: Mild bilateral exophthalmos is suspected with slight prominence of the medial rectus muscles. Bones: Unremarkable. No acute fracture. Soft tissues: Unremarkable. CT/CT head wo con* [id number] IMPRESSION: 1. No acute intracranial head CT findings identified. 2. Bilateral exophthalmos question history of thyroid ophthalmopathy.
--- NOTE | 2025-02-05 18:07 | CTR_ITS ---
PROCEDURE INFORMATION: Exam: CT Cervical Spine Without Contrast Exam date and time: 02/05/2025 5:18 PM Age: 39 years old Clinical indication: C/O HOLLOWAY with bilateral upper extremity numbness. ; Additional info: Bilateral arm numbness TECHNIQUE: Imaging protocol: Computed tomography of the cervical spine without contrast. Radiation optimization: All CT scans at this facility use at least one of these dose optimization techniques: automated exposure control; mA and/or kV adjustment per patient size (includes targeted exams where dose is matched to clinical indication); or iterative reconstruction. COMPARISON: CR XR cervical spine fl/ex [id number] 03/02/2024 12:28 PM RADIATION DOSE METRICS: Total DLP (mGy-cm): 914.6 FINDINGS: Bones/joints: Markedly prominent soft tissues result in significant beam hardening which does obscure resolution particularly through the lower sections at the cervicothoracic region. Detailed axial sections and reconstructed sagittal and coronal image sets demonstrate no distinct linear areas of decreased density as might suggest fracture. Minimal posterior spurring is seen at the C5-C6 level. No acute fracture. Coronal images demonstrate minimal convexity of the cervical spine being directed to the right. Sagittal images demonstrate normal alignment to be present. C2-C3: No significant disc bulge or herniation. No severe spinal canal stenosis. No significant neural foraminal narrowing. C3-C4: No significant disc bulge or herniation. No severe spinal canal stenosis. No significant neural foraminal narrowing. C4-C5: No significant disc bulge or herniation. No severe spinal canal stenosis. No significant neural foraminal narrowing. C5-C6: Minimal posterior spurring is seen minimally narrowing the canal. No severe spinal canal stenosis. No significant neural foraminal narrowing. C6-C7: No significant disc bulge or herniation. No severe spinal canal stenosis. No significant neural foraminal narrowing. C7-T1: No significant disc bulge or herniation. No severe spinal canal stenosis. No significant neural foraminal narrowing. Lungs: Lung apices are normal. Soft tissues: Unremarkable. CT/CT cervical spin wo con* [id number] IMPRESSION: 1. No acute cervical spine CT findings identified. 2. Minimal degenerative spurring at C5-C6. 3. If further discrimination is needed an MRI is suggested as the mid to lower cervical region can not be well seen due to prominent beam hardening artifact from overlying soft tissues.
[2025-02-05 18:24] LABS: Basophils % 0.5 %; Eosinophils # 0.3 10^3/uL (0.0-0.8); Eosinophils % 3.2 %; Hematocrit 44.1 % (36-47); Lymphocytes % 24.4 %; Mean Corpuscular Hemoglobin 30.1 pg (27-33); Mean Corpuscular Volume 94.2 fl (85-98); Mean Platelet Volume 9.7 fL (7.4-10.4); Monocytes # 0.4 10^3/uL (0.2-0.9); Monocytes % 4.5 %; Neutrophils # 5.49 10^3/uL (1.8-7.7); Neutrophils % 67.2 %; Nucleated Red Blood Cells % 0 %; Platelet Count 322 10^3/cmm (157-399); Red Blood Count 4.68 10^6/uL (3.85-5.65); Red Cell Distribution Width 13.6 % (12.1-15.1); White Blood Count 8.17 10^3/uL (3.29-11.43)
[2025-02-05 18:37] LABS: HCG, Serum Qual Negative (Negative)
[2025-02-05 18:39] LABS: INR 0.84 (0.8-1.2); Partial Thromboplastin Time 27.4 SECONDS (23.9-36.7)
[2025-02-05 18:43] LABS: Alanine Aminotransferase 32 U/L (0-33); Albumin Level 4.1 g/dL (3.5-5.2); Alkaline Phosphatase 94 U/L (35-105); Anion Gap 11.7 (5-19); Aspartate Amino Transferase 17 U/L (0-32); Blood Urea Nitrogen 10 mg/dL (6-20); C Reactive Protein 15.8 mg/L (0.0-4.9); Calcium 9.3 mg/dL (8.5-10.5); Carbon Dioxide 26 mmol/L (22-29); Chloride 100 mmol/L (98-107); Creatinine Clr Calc Pharmacy 158.6495; Globulin 3.7 g/dL (1.3-4.6); Glomerular Filtration Rate 92.2 mL/min (90-130); Glucose 90 mg/dL (65-115); Magnesium 2.1 mg/dL (1.7-2.3); Osmolality Calculated 277 mOsm/kg (285-295); Potassium 3.7 mmol/L (3.5-5.1); Sodium 134 mmol/L (136-145); Total Bilirubin 0.2 mg/dL (0.15-1.2); Total Protein 7.8 g/dL (6.6-8.7)
[2025-02-05 18:46] VITALS: BP 159/99; PULSE 88; O2SAT 98
--- NOTE | 2025-02-05 18:51 | ECG_ITS ---
Exepron Test Date: 2025-02-05 Pat Name: Robyn Wenier Department: Room: Gender: Female Certified Mortician: : 1985 Requested By: Rodolfo Bal Order Number: [id number] Landon MD: LAINA CHAMBERLAIN Measurements Intervals [place] Rate: 82 P: 55 NM: 207 QRS: -5 QRSD: 100 T: -1 QT: 350 QTc: 410 Interpretive Statements SINUS RHYTHM POSSIBLE LEFT ATRIAL ENLARGEMENT [-0.1mV P-WAVE IN V1/V2] LOW QRS VOLTAGE IN PRECORDIAL LEADS [QRS DEFLECTION < 1.0 mV IN CHEST LEADS] MODERATE ST DEPRESSION [0.05+ mV ST DEPRESSION] No previous ECG available for comparison Electronically Signed On 02-06-2025 22:14:53 CDT by LAINA CHAMBERLAIN [email or web address] [id number]
[2025-02-05 19:04] LABS: Bilirubin Urine Negative (Negative); Blood Urine Negative (Negative); Glucose Urine UA Negative (Normal); Ketones Urine Negative (Negative); Leukocyte Esterase Urine Negative (Negative); Nitrate Urine Negative (Negative); Protein Urine Negative (Negative); Specific Gravity, Urine 1.016 (1.005-1.030); Urine Appearance Cloudy (CLEAR); Urine Color Yellow (Yellow); Urobilinogen Urine 0.2 mg/dL (Negative)
[2025-02-05 19:10] LABS: Add Urine Microscopic? YES; Bacteria Urine 2+ /hpf
--- NOTE | 2025-02-05 19:17 | W.ED.NEUROSD ---
HPI - Neuro Symptoms/Deficit General: Chief Complaint: Neuro Symptoms/Deficit Stated Complaint: numb on lft side Time Seen by Provider: 02/05/25 18:20 History of Present Illness: 39-year-old female presenting with multiple complaints. She says she has a headache, some mild neck pain, for the last couple of days. She says she has felt tired. She has a burning sensation in her chest at times. She states that her right shoulder had some pain at 1 point this is essentially resolved. She says that earlier today her left arm went numb as well as her left leg to some degree. It is somewhat improved now, but still feels tingly. She has not had these sensations before. She also says that her whole face is somewhat numb. She does have a history of migraines and frequently, and has had some numbness to her face before but she says this is different. Related Data Previous Rx's ?Medication ?Instructions ?Recorded cholecalciferol (vitamin D3) 50 2,000 unit PO DAILY 3 months #90 11/02/23 mcg (2,000 unit) capsule caps baclofen 10 mg tablet 10 mg PO TID PRN muscle spasm #30 01/13/24 tabs cetirizine 10 mg tablet (Zyrtec) 10 mg PO DAILY PRN allergy 12/14/24 symptoms #30 tabs pantoprazole 40 mg tablet,delayed 40 mg PO BID 6 weeks #84 tabs 01/02/25 release (Protonix) cefdinir 300 mg capsule 300 mg PO BID 5 days #10 caps 01/26/25 fluconazole 150 mg tablet 150 mg PO Q3D 2 doses #2 tabs 01/26/25 Allergies Allergy/AdvReac Type Severity Reaction Status Date / Time amoxicillin Allergy Intermediate hives Verified 01/26/25 10:27 Tetanus Vaccines and Toxoid Allergy hives,swell Verified 01/26/25 10:27 [facility] ED PFS: Medical History Bilateral otitis media Dysphagia Flu-like symptoms Chronic flank pain Normal Pap smear Left ankle strain Obesity, morbid, BMI 50 or higher Well woman exam with routine gynecological exam Lumbar radiculopathy, right Anemia Breast cancer screening by mammogram Vaginal discharge Cervical cancer screening Chronic back pain DDD (degenerative disc disease), cervical Sprain of wrist, right Contusion of left knee Vitamin D deficiency Pharyngitis Encounter for laboratory test Encounter for screening for cardiovascular disorders Vitamin D deficiency Nasal septal erosion Joint pain Thoracic back pain Low back pain Abscess of left genital labia Flank pain Urinary frequency Medication management Cyst of joint of left hand Spider bite Abscess of left groin Hypertension screen Fatigue Medication management Palpitations COVID-19 virus infection H/O eczema Shoulder fracture, left Elevated blood pressure reading without diagnosis of hypertension Surgical History Hx of dilation and curettage x 2 Family History Grandmother Bleeding disorder Cancer esophageal cancer Dementia Grandfather Bleeding disorder CAD (coronary artery disease), Onset Age: 55 [place] Diabetes Family/Other Bleeding disorder Chronic kidney disease (CKD) Dementia Diabetes Lung disease Denies family history of Clotting disorder Suicide Anesthesia complication Stroke Social History Smoking and tobacco/nicotine status: never used tobacco/nicotine Alcohol intake: never Substance/Drug Use: never NIH stroke score NIHSS: Level Of Consciousness - 1a: 0 Level Of Consciousness Questions - 1b: Both Correct Level Of Consciousness Commands - 1c: Both Correct Best Gaze - 2: Normal Visual Trejo - 3: No Visual Loss Facial Palsy - 4: Normal Motor Arm Right - 5: No Drift Motor Arm Left - 5: No Drift Motor Leg Right - 6: No Drift Motor Leg Left - 6: No Drift Limb Ataxia - 7: Absent Sensory - 8: Normal Best Language - 9: No Aphasia Dysarthia - 10: Normal Extinction And Inattention - 11: 0 Score: Total Score: 0 Physical Exam Const: COMMON NORMALS: no acute distress GENERAL APPEARANCE: cooperative; not ill appearing and not frail appearing HENMT: COMMON NORMALS: normocephalic, atraumatic and Normal external nose present HEAD & SCALP: normocephalic and atraumatic FACE & SINUS: normal facial exam and face symmetric NOSE: Normal external nose present Eye: COMMON NORMALS: Equal, round and reactive pupils present and EOMs intact bilaterally PUPIL: Yes Equal, round and reactive pupils present Neck/C-Spine: GENERAL: Yes trachea midline Chest: CHEST: Yes Symmetrical chest wall rise Resp: COMMON NORMALS: normal respiratory effort, No retractions, No use of accessory muscles and clear to auscultation bilaterally AUSCULTATION: clear to auscultation bilaterally Cardio: COMMON NORMALS: regular rate and regular rhythm RATE: regular rate RHYTHM: regular rhythm GI: COMMON NORMALS: Normal to inspection, nondistended, normoactive bowel sounds present Extremity: COMMON NORMALS: no pedal edema Neuro: REBECCA COMA SCALE: document GCS findings [place] coma scale eye opening: Spontaneous [place] coma scale verbal response: Orientated [place] coma scale motor response: Obey commands [place] coma scale total score: 15 SENSORY EXAM: Yes extremities (intact) Psych: COMMON NORMALS: speech normal SPEECH: Yes normal speech Skin: COMMON NORMALS: no rashes or lesions noted GENERAL SKIN EXAM: no rashes or lesions noted Course Vital Signs: Vital signs: Vital Signs Temperature 98.1 F 02/05/25 17:59 Pulse Rate 76 02/05/25 21:34 Respiratory Rate 17 02/05/25 17:59 Blood Pressure 127/75 02/05/25 21:34 Pulse Oximetry 96 02/05/25 21:34 Oxygen Delivery Me thod Room Air 02/05/25 17:59 MDM - Neuro Symptoms/Deficit Medical Decision Making Headache is minimally improved following medication. She is given IV Depacon, Toradol, Zofran. She moves her neck freely. It is not stiff or painful to move. CT of the cervical spine is negative. CT of the head is negative. She has a negative urinalysis. Suspect complex migraine in this patient. Her stroke scale is 0. Should be allowed discharge. She knows to return for any worsening of her symptoms. Close outpatient follow-up. Lab Data 02/05/25 18:17 02/05/25 18:17 Radiology Impressions Cervical Spine CT 02/05/25 18:07 IMPRESSION: 1. No acute cervical spine CT findings identified. 2. Minimal degenerative spurring at C5-C6. 3. If further discrimination is needed an MRI is suggested as the mid to lower cervical region can not be well seen due to prominent beam hardening artifact from overlying soft tissues. Head CT 02/05/25 18:07 IMPRESSION: 1. No acute intracranial head CT findings identified. 2. Bilateral exophthalmos question history of thyroid ophthalmopathy. Laboratory Results WBC 8.17 10^3/uL (3.29-11.43) 02/05/25 18:17 RBC 4.68 10^6/uL (3.85-5.65) 02/05/25 18:17 Hgb 14.10 g/dL (11.27-16.99) 02/05/25 18:17 Hct 44.1 % (36-47) 02/05/25 18:17 MCV 94.2 fl (85-98) 02/05/25 18:17 MCH 30.1 pg (27-33) 02/05/25 18:17 MCHC 32.0 g/dL (30-55) 02/05/25 18:17 RDW 13.6 % (12.1-15.1) 02/05/25 18:17 Plt Count 322 10^3/cmm (157-399) 02/05/25 18:17 MPV 9.7 fL (7.4-10.4) 02/05/25 18:17 Neut % (Auto) 67.2 % 02/05/25 18:17 Lymph % (Auto) 24.4 % 02/05/25 18:17 Coke % (Auto) 4.5 % 02/05/25 18:17 Eos % (Auto) 3.2 % 02/05/25 18:17 Baso % (Auto) 0.5 % 02/05/25 18:17 Neut # (Auto) 5.49 10^3/uL (1.8-7.7) 02/05/25 18:17 Lymph # (Auto) 2.0 10^3/uL (0.8-4.8) 02/05/25 18:17 Coke # (Auto) 0.4 10^3/uL (0.2-0.9) 02/05/25 18:17 Eos # (Auto) 0.3 10^3/uL (0.0-0.8) 02/05/25 18:17 Baso # (Auto) 0.0 10^3/uL (0.0-0.1) 02/05/25 18:17 Nucleated RBC % (auto) 0 % 02/05/25 18:17 Nucleated RBCs # 0.0 /100WBC 02/05/25 18:17 PT 12.10 SECONDS (12.1-14.9) 02/05/25 18:17 INR 0.84 (0.8-1.2) 02/05/25 18:17 APTT 27.4 SECONDS (23.9-36.7) 02/05/25 18:17 Sodium 134 mmol/L (136-145) L 02/05/25 18:17 Potassium 3.7 mmol/L (3.5-5.1) 02/05/25 18:17 Chloride 100 mmol/L (98-107) 02/05/25 18:17 Carbon Dioxide 26 mmol/L (22-29) 02/05/25 18:17 Anion Gap 11.7 (5-19) 02/05/25 18:17 BUN 10 mg/dL (6-20) 02/05/25 18:17 Creatinine 0.7 mg/dL (0.5-0.9) 02/05/25 18:17 GFR Calculation 92.2 mL/min (90-130) 02/05/25 18:17 Glucose 90 mg/dL (65-115) 02/05/25 18:17 Calculated Osmolality 277 mOsm/kg (285-295) L 02/05/25 18:17 Calcium 9.3 mg/dL (8.5-10.5) 02/05/25 18:17 Phosphorus 3.0 mg/dL (2.5-4.5) 02/05/25 18:17 Magnesium 2.1 mg/dL (1.7-2.3) 02/05/25 18:17 Total Bilirubin 0.2 mg/dL (0.15-1.2) 02/05/25 18:17 AST 17 U/L (0-32) 02/05/25 18:17 ALT 32 U/L (0-33) 02/05/25 18:17 Alkaline Phosphatase 94 U/L (35-105) 02/05/25 18:17 Troponin T Baseline < 6 ng/L (0-10) 02/05/25 18:17 Troponin T 120 Minute 6.00 ng/L (0-10) 02/05/25 20:08 Delta Troponin T 0.90628 ABS# (0-10) 02/05/25 20:08 C-Reactive Protein 15.8 mg/L (0.0-4.9) H 02/05/25 18:17 Total Protein 7.8 g/dL (6.6-8.7) 02/05/25 18:17 Albumin 4.1 g/dL (3.5-5.2) 02/05/25 18:17 Globulin 3.7 g/dL (1.3-4.6) 02/05/25 18:17 HCG, Qual Negative (Negative) 02/05/25 18:17 Urine Color Yellow (Yellow) 02/05/25 18:39 Urine Appearance Cloudy (CLEAR) A 02/05/25 18:39 Urine pH 5.0 (5-7) 02/05/25 18:39 Ur Specific [place] 1.016 (1.005-1.030) 02/05/25 18:39 Urine Protein Negative (Negative) 02/05/25 18:39 Urine Glucose (UA) Negative (Normal) 02/05/25 18:39 Urine Ketones Negative (Negative) 02/05/25 18:39 Urine Blood Negative (Negative) 02/05/25 18:39 Urine Nitrate Negative (Negative) 02/05/25 18:39 Urine Bilirubin Negative (Negative) 02/05/25 18:39 Urine Urobilinogen 0.2 mg/dL (Negative) 02/05/25 18:39 Ur Leukocyte Esterase Negative (Negative) 02/05/25 18:39 Urine RBC 3-5 /hpf (0-2) 02/05/25 18:39 Urine WBC 11-20 /hpf (0-5) H 02/05/25 18:39 Ur Squamous Epith Cells 11-20 /hpf (0-5) H 02/05/25 18:39 Amorphous Sediment Not Reportable 02/05/25 18:39 Urine Bacteria 2+ /hpf (NONE) H 02/05/25 18:39 Hyaline Casts 0.40 /lpf 02/05/25 18:39 All radiology interpretation(s) finalized by discharge Discharge Plan Discharge Patient Disposition: Home Clinical Impression: Headache, Paresthesia Condition: Stable Prescriptions: No Action baclofen 10 mg tablet 10 mg PO TID PRN (Reason: muscle spasm) Qty: 30 0RF cholecalciferol (vitamin D3) 50 mcg (2,000 unit) capsule 2,000 unit PO DAILY 90 Days Qty: 90 0RF cetirizine [Zyrtec] 10 mg tablet 10 mg PO DAILY PRN (Reason: allergy symptoms) Qty: 30 3RF pantoprazole [Protonix] 40 mg tablet,delayed release (DR/EC) 40 mg PO BID 42 Days Qty: 84 1RF cefdinir 300 mg capsule 300 mg PO BID 5 Days Qty: 10 0RF fluconazole 150 mg tablet 150 mg PO Q3D 0 Days Qty: 2 0RF Discharge Orders: Discharge ED (Routine); Ordered 02/05/25 Ordered By: Rodolfo Menendez Referrals: DINO Willoughby, MAIL HANDLER [Primary Care Provider] - 1-3 days Patient Instructions: Acute Headache (ED), Paresthesia (ED), Opioid Safety, Pain Management Activity Restrictions/Additional Instructions: Return for worsening headache, vision changes, significant weakness, worsening numbness or tingling, language problems, any other concerning symptoms. Call your doctor tomorrow for follow-up appointment. Print Language: Lithuanian Coding Level of Care Code ED Hooking Machine Operator for Carla Nunn
[2025-02-05 19:30] LABS: Troponin(5th) Baseline < 6 ng/L (0-10)
[2025-02-05] MEDS: ondansetron 2 mg/ML SDV 2 mL 4 MG IVP (19:35)
[2025-02-05] MEDS: ketorolac 30 mg/mL INJ IVP (19:37)
[2025-02-05] MEDS: valproic acid inj 500 MG in sodium chloride 0.9% 50 ML 55 MG IV (19:38)
--- NOTE | 2025-02-05 20:34 | ECG_ITS ---
[facility] Date: 2025-[facility]05 Pat Name: Robyn Weiner Department: Room: Gender: Female Observer Electrical Prospecting: : 1985 Requested By: Rodolfo Bal Order Number: [id number] Landon MD: LAINA CHAMBERLAIN Measurements Intervals [place] Rate: 74 P: 32 PA: 223 QRS: 66 QRSD: 99 T: 67 QT: 361 QTc: 401 Interpretive Statements SINUS RHYTHM WITH FIRST DEGREE AV BLOCK LOW QRS VOLTAGE IN PRECORDIAL LEADS [QRS DEFLECTION < 1.0 mV IN CHEST LEADS] MODERATE ST DEPRESSION [0.05+ mV ST DEPRESSION] Compared to ECG 02/05/2025 18:51:36 First degree AV block now present ST (T wave) deviation still present Electronically Signed On 02-06-2025 22:21:57 CDT by LAINA CHAMBERLAIN [email or web address] [id number]
[2025-02-05 20:45] LABS: Troponin 5 2HR Delta 0.00001 ABS# (0-10)
[2025-02-05] MEDS: SUMAtriptan 25 mg Tablet 100 MG PO (21:23)
[2025-02-05 21:34] VITALS: BP 127/75; PULSE 76; O2SAT 96
== END 2025-02-05 21:30 | disposition home or self-care (01) ==
PROVIDERS: Emergency Provider Emergency Medicine; PCP Nurse Practitioner Family
DX: R51.9 Headache, unspecified (principal); R20.2 Paresthesia of skin
CPT/HCPCS: 36415; 70450; 72125; 80053; 81001; 83735; 84100; 84484; 84703; 85025; 85610; 85730; 86140; 93005; 96365; 96375; 99285; J1885; J2405; J3490

== ENCOUNTER 2025-08-17 12:49 | Outpatient (CLI) | payer BC, MEDICAID, SELFPAY ==
--- NOTE | 2025-08-17 13:00 | US_ITS ---
WS: [id number] ULTRASOUND SOFT TISSUES LEFT axilla HISTORY: R59.0 - Localized enlarged lymph nodes COMPARISON: None available. TECHNIQUE: 2-D and color Doppler imaging is submitted. Ultrasound directed to the palpable abnormality in the LEFT axilla. There are several lymph nodes in the LEFT axilla which are abnormal. Lymph nodes are not significantly enlarged. Normal ovoid shape. There is significant cortical thickening involving a segment of the lymph node with the cortex measuring up to 1.2 cm. Fatty hilum is being slightly displaced. There are several lymph nodes in the axilla with an abnormal cortex. There is increased vascularity to the hilum. US/US soft tissue/extremity [id number] IMPRESSION: Abnormal LEFT axillary lymph nodes. Asymmetric cortical thickness and abnormal blood flow to the lymph node. Neoplastic or reactive adenopathy should be consi dered. Recommend short-term ultrasound follow-up after treatment with appropria te antibiotics. If these lymph nodes are not improving with antibiotic treatmen t ultrasound-guided biopsy should be obtained.
== END 2025-08-17 12:50 | disposition home or self-care (01) ==
LOC: RAD 12:50
PROVIDERS: PCP Nurse Practitioner Family; Visit Provider Nurse Practitioner Family
DX: R59.0 Localized enlarged lymph nodes (principal)
CPT/HCPCS: 76882